=== PATIENT | female | born 1940 | race Caucasian/White ===

== ENCOUNTER 2020-09-29 20:43 | Emergency (ER) | payer MEDICARE ==
[~2020-09-29] VITALS: Ht 162.6 cm; Wt 72.6 kg
--- NOTE | 2020-09-29 20:50 | NUR ---
ED Nurse Note: Pt presented to ER with complaints of chest pain, pt is Aox4 tachycardic, ambulatory, all other vitals stable
--- NOTE | 2020-09-29 21:00 | NUR ---
ED Nurse Note: blood sent to lab
--- NOTE | 2020-09-29 21:09 | NUR ---
ED Nurse Note: radiochemical technician at bedside
[2020-09-29] MEDS ORDERED: dilTIAZem HCl 25mg/5ml Inj ONE (21:15)
[2020-09-29] MEDS ORDERED: dilTIAZem Premix 125mg/125ml 125 ML IVPB ONE (21:15)
[2020-09-29] MEDS ORDERED: dilTIAZem HCl 25mg/5ml Inj IVP ONE (21:15)
--- NOTE | 2020-09-29 21:16 | Emergency Room Report ---
History of Present Illness General Chief Complaint: Chest Pain Source: Patient Present Illness HPI 80-year-old female with a history of paroxysmal atrial fibrillation not on anticoagulation, on metoprolol, here with chest pain and palpitations. Patient says that approximately 5 hours prior to come to the emergency department she began feeling sudden onset of palpitations and has since felt severe crushing osorio bsternal chest pain during that time. Pain is substernal, pressure-like in nature, does not otherwise radiate. Denies headache, vision change, fevers, chills, shortness of breath, cough, back pain, abdominal pain, nausea, vomiting, diarrhea, dysuria. Patient says she took 2 baby aspirin before coming to the emergency department. Patient is [place]-speaking and her daughter provided translation. Allergies: Coded Allergies: No Known Allergies (Unverified , 09/29/20) COVID-19 Screening Contact w/high risk pt: No Experienced COVID-19 symptoms?: No COVID-19 Testing performed [employer]PER[employer]ENT: No COVID-19 Screening: Negative COVID-19 Patient History Now: No Nursing Documentation-[facility] Past Medical History: No History, Except For Hx Cardiac Problems: Yes - dysrrhythmias Hx Hypertension: Yes Review of Systems All Other Systems: negative except mentioned in HPI Physical Exam Vital Signs Date Time Temp Pulse Resp B/P (MAP) Pulse Ox O2 Delivery O2 Flow Rate FiO2 09/29/20 21:05 98.1 157 20 107/94 (98) 100 Room Air Sp02 EP Interpretation: reviewed, normal General Appearance: no apparent distress, alert, non-toxic Head: normocephalic, atraumatic Eyes: bilateral eye normal inspection, bilateral eye PERRL ENT: hearing grossly normal, normal pharynx, no angioedema, normal voice Neck: full range of motion, supple/symm/no masses Respiratory: chest non-tender, lungs clear, normal breath sounds, speaking full sentences Cardiovascular #1: other - Tachycardic irregularly irregular rhythm, heart rate 130 to 150 bpm. 2+ lower extremity pitting edema bilateral lower extremities Cardiovascular #2: 2+ carotid (R), 2+ carotid (L), 2+ radial (R), 2+ radial (L), 2+ dorsalis pedis (R), 2+ dorsalis pedis (L) Gastrointestinal: normal bowel sounds, non tender, soft, non-distended, no guarding, no rebound Rectal: deferred Genitourinary: normal inspection, no CVA tenderness Musculoskeletal: back normal, normal range of motion, gait/station normal, non- tender Neurologic: alert, motor strength/tone normal, oriented x3, sensory intact, responsive, speech normal Psychiatric: judgement/insight normal, memory normal, mood/affect normal, no suicidal/homicidal ideation Lymphatic: no adenopathy Medical Decision Making Diagnostic Impression: Primary Impression: Chest pain Additional Impressions: Atrial fibrillation with RVR Elevated troponin ER Course EKG: Irregularly irregular rhythm 145 bpm. intervals WNL. T wave inversions in leads III and aVF Rhythm strip: patient monitored for arrhythmias - no malignant dysrhythmias, runs of PVCs, nor pauses noted Total critical care time: Approximately 45 minutes Due to a high probability of clinically significant, life threatening deterioration, the patient required the highest level of preparedness to intervene emergently and I personally spent this critical care time directly and personally managing the patient. This critical care time included obtaining a history, examining the patient, pulse oximetry, ordering and reviewing studies, ordering treatments, evaluating response to treatment and updating management plan as needed, frequent reassessment and discussion with other providers as well as arranging for ultimate disposition. This critical to care time was performed to assess and manage the high probability of life-threatening deterioration that could result in multiorgan failure. This critical care time is separate from the separately billable procedures and treating other patients. CXR: No infiltrate/effusion. Mediastinum within normal limits. No consolidations. No free air under the diaphragm. No bony abnormalities 80-year-old female with history of paroxysmal atrial fibrillation with palpitations and chest pain for 5 hours prior to come to the emergency department. Patient was found to be in atrial fibrillation with RVR on arrival. Heart rate was in the 160s. Blood pressure was normal and she was neurovascularly intact. Patient was given 10 mg of Cardizem IV and p.o. aspirin. After few minutes her heart rate normalized to the low 80s however she did have a transient drop in her blood pressure to a MAP of the low 60s. Throughout this episode the patient remained completely awake and alert and had no complaints whatsoever. Said that her chest pain had resolved. She was given 1 L of IV normal saline with resolution of her hypotension. Cardizem infusion was never started. After period of observation the patient's heart rate once again increased to the 120s and blood pressure remained stable. Patient was given 30 mg p.o. Cardizem. I spoke with Dr. Josue Hawthorne at [facility] who accepted the patient for transfer. They requested a Covid rapid antigen test which was negative. Patient was found to have an elevated troponin of 0.17. CBC and CMP largely unremarkable. Chest x-ray normal. EKG showed T wave inversions in leads III and aVF. We do not have prior EKGs for comparison. Currently awaiting transfer. Last Vital Signs Date Time Temp Pulse Resp B/P (MAP) Pulse Ox O2 Delivery O2 Flow Rate FiO2 09/29/20 21:05 98.1 157 20 107/94 (98) 100 Room Air Aric Pena M.D. Sep 29, 2020 21:16
--- NOTE | 2020-09-29 21:26 | Diagnostic Imaging Report ---
EXAM: XR Chest, 1 View CLINICAL HISTORY: PAIN TECHNIQUE: Frontal view of the chest. COMPARISON: No relevant prior studies available. FINDINGS: Lungs: No consolidation. Pleural space: No pleural effusion. No pneumothorax. Heart: Unremarkable. No cardiomegaly. IMPRESSION: No acute cardiopulmonary abnormality.
[2020-09-29 21:29] LABS: BASOPHILS % (AUTO) 0.6 % (0.0-2.0); EOSINOPHILS % (AUTO) 0.2 % (0.0-3.0); HEMATOCRIT 41.8 % (37.0-47.0); HEMOGLOBIN 13.4 G/DL (12.0-16.0); MEAN CORPUSCULAR VOLUME 95 FL (80-99); MONOCYTES % (AUTO) 4.8 % (1.0-10.0); NEUTROPHILS % (AUTO) 74.4 % (45.0-75.0); PLATELET COUNT 203 K/UL (150-450); RED BLOOD COUNT 4.42 M/UL (4.20-5.40); RED CELL DISTRIBUTION WIDTH 13.3 % (11.6-14.8); WHITE BLOOD COUNT 8.2 K/UL (4.8-10.8)
[2020-09-29 21:39] LABS: ANION GAP 9 mmol/L (5-15); BLOOD UREA NITROGEN 25 mg/dL (7-18); CALCIUM 9.3 MG/DL (8.5-10.1); CARBON DIOXIDE 25 MMOL/L (21-32); CHLORIDE 108 MMOL/L (98-107); POTASSIUM 3.8 MMOL/L (3.5-5.1); SODIUM 142 MMOL/L (136-145)
[2020-09-29 21:50] LABS: ALANINE AMINOTRANSFERASE 67 U/L (12-78); ALBUMIN 3.4 G/DL (3.4-5.0); ALBUMIN/GLOBULIN RATIO 0.9 (1.0-2.7); ALKALINE PHOSPHATASE 89 U/L (46-116); ASPARTATE AMINO TRANSFERASE 46 U/L (15-37); BILIRUBIN,TOTAL 0.6 MG/DL (0.2-1.0); CREATINE KINASE 87 U/L (26-308)
[2020-09-29 21:57] VITALS: BP 112/94
[2020-09-29] MEDS ORDERED: Aspirin Baby 81mg ORAL ONE (22:15)
[2020-09-29 22:33] VITALS: BP 103/68
--- NOTE | 2020-09-29 22:48 | NUR ---
ED Nurse Note: Covid specimen sent to lab
[2020-09-29] MEDS ORDERED: dilTIAZem HCl 30mg tab ORAL ONE (23:00)
[2020-09-30 00:44] VITALS: BP 80/61
--- NOTE | 2020-09-30 01:18 | NUR ---
TRANSFER TO FLOOR: Patient transferred to [place] as ordered, per MD . Report given to SAIGE Guevara. Belongings sent with patient
== END 2020-09-30 01:00 | disposition short-term general hospital (02) ==
LOC: EMR 20:45 → EDBEDREQSVC 21:45 → EMR 09-30 01:00
DX: I48.20 Chronic atrial fibrillation, unspecified (principal); R79.89 Other specified abnormal findings of blood chemistry; R07.9 Chest pain, unspecified; I10 Essential (primary) hypertension
CPT/HCPCS: 36415; 71045; 80053; 82550; 83690; 83880; 84484; 85025; 85610; 85730; 93005; 96374; 96375; 99291; J3490; J7040